=== PATIENT | female | born 1990 | race African-American/Black ===

== ENCOUNTER 2018-06-27 08:55 | Emergency (ER) | payer OTHER ==
[~2018-06-27] VITALS: Ht 157.5 cm; Wt 64.0 kg
[2018-06-27] MEDS ORDERED: FOLIC ACID1 MG PO (09:03)
[2018-06-27] MEDS ORDERED: OBSTETRIX DHA1 EACH PO (09:04)
== END 2018-06-27 12:53 | disposition home or self-care (01) ==
LOC: ER 08:55
DX: O20.0 Threatened abortion (principal)

== ENCOUNTER 2019-02-03 14:00 | Inpatient (IN) | payer OTHER ==
[~2019-02-03] VITALS: Ht 157.5 cm; Wt 80.7 kg
[~2019-02-03 14:00] MED LIST: FOLIC ACID1 MG PO; OBSTETRIX DHA1 EACH PO
== END 2019-02-10 11:01 | disposition home or self-care (01) | DRG 807 ==
LOC: O/R 14:00 → OB/GYN 02-08 05:16 → LDR 02-08 05:16 → OB/GYN 02-08 18:46 → LDR 02-09 14:00 → OB/GYN 02-10 11:01
PROVIDERS: ADMIT Obstetrics & Gynecology
PROC: 10E0XZZ Delivery of Products of Conception, External Approach (ICD-10-PCS; principal; 2019-02-08)
PROC: 0UQGXZZ Repair Vagina, External Approach (ICD-10-PCS; 2019-02-08)
PROC: 3E033VJ Introduction of Other Hormone into Peripheral Vein, Percutaneous Approach (ICD-10-PCS; 2019-02-08)
PROC: 4A1HXCZ Monitoring of Products of Conception, Cardiac Rate, External Approach (ICD-10-PCS; 2019-02-08)
DX: O71.4 Obstetric high vaginal laceration alone (principal); Z37.0 Single live birth; Z3A.39 39 weeks gestation of pregnancy

== ENCOUNTER 2019-02-03 15:14 | Outpatient (CLI) | payer OTHER | END 2019-02-03 15:30 | disposition home or self-care (01) | LOC: NST 15:14 | DX: Z34.83 Encounter for supervision of other normal pregnancy, third trimester (principal) ==

== ENCOUNTER 2023-11-05 11:48 | Outpatient (CLI) | payer OTHER | END 2023-11-05 11:56 | disposition home or self-care (01) | LOC: RAD 11:48 | DX: R07.9 Chest pain, unspecified (principal) ==